=== PATIENT | female | born 1930 | race Caucasian/White ===

== ENCOUNTER 2016-07-11 08:15 | Emergency (ER) | payer MEDICARE ==
[~2016-07-11] VITALS: Ht 162.6 cm; Wt 70.5 kg
[~2016-07-11 08:15] MED LIST: LEVO100T97 PO; NITR0.4T6 SL
[2016-07-11 08:19] VITALS: BP 139/77; PULSE 87; RESP 14; O2SAT 96
--- NOTE | 2016-07-11 09:20 | ED.REPORT ---
HPI-Abd Pain F 40 and Over Date of Service Jul 11, 2016 ED Provider: James Frank MD 85 y/o female with a hx of constipation, hemorrhoid, Myocardial Infarction (5 stents) and Cerebrovascular accident presents to the ED complaining of lower abdominal pain, onset 3 days ago. The pain is exacerbated by eating and drinking. Her pain today increased after drinking coffee this morning. She says she "feels like something is crawling in her abdomen". She also complains of decreased urination, constipation (but she is passing gas) and subjective fever but denies dysuria, bloody stools, melena, change in chronic back pain, hematuria, nausea, vomiting, weakness, numbness, chest pain, and shortness of breath. Pt says she has never had similar before. As per the daughter, the pt seemed confused yesterday and had a BM after using a suppository. Nursing Notes Stated Complaint: ABD PAIN Chief Complaint: Female Abdominal Pain Nursing Notes Reviewed: Yes Allergies: Coded Allergies: No Known Allergies (Verified Allergy, Unknown, 02/03/15) Scheduled Cephalexin (Keflex) 500 Mg Capsule 500 MG PO QID Levothyroxine-Expunged Drug, Do Not Renew! (Levoxyl-Expunged Drug, Do Not Renew! ) 100 Mcg Tablet 100 MCG PO DAILY Nitroglycerin SL (Nitroglycerin SL) 0.4 Mg Tab.subl 0.4 MG SL prn use one under your tongue for chest pain. Repeat in five minutes is not effective. Repeat again if still having chest pain. Call 911 if a 3rd dose is needed. Dispense 2 bottles for patient. dispose of bottle opened more than 4 months or if "tingle" not noted under tongue when used. General Time Seen by MD: 09:11 Chief Complaint Abdominal pain Hx Obtained From: Patient Arrived By: Walk-in Sudden in Onset?: Yes Onset Occurred: 3 days ago Context of Onset: Eating Symptom Duration: Intermittent Progression since Onset: Intermittent Location: : Abdomen lower Quality: Painful Radiation: : Does not radiate Severity: Current: Mild Severity: Maximum: Moderate Recent Healthcare: Recent doctor visit Similar Sx Previous: No Past Medical History Past Medical History Strokes x2 CAD Hx of DVTs Chronic knee and back pain Hemorrhoid constipation Myocardial Infarction Reports: Asthma Past Surgical History Vascular surgery Cardiac stents Family History noncontributory Smoking History Former Smoker Social History Alcohol Use: Denies alcohol use Drug Use: Denies drug use Other Social History: Good social support, Local resident Occupation lives with daughter Ambulatory Status Independent Review of Systems Constitutional: Reports: Fever Respiratory: Denies: Shortness of breath Cardiovascular: Denies: Chest pain GI: Reports: Abdominal pain, Constipation, Denies: Bloody/tarry stool, Melena, Nausea, Vomiting Female: Reports: Urination decreased, Denies: Dysuria, Flank pain, Hematuria Complete sys rev & neg: except as marked. Neurologic: Reports: Confusion, Denies: Focal weakness, Numbness, Slurred speech, Unable to speak, Weakness Physical Exam Vital Signs Vital Signs (First) Date Time Temp Pulse Resp B/P Pulse Ox O2 Delivery O2 Flow Rate FiO2 07/11/16 08:19 37.4 87 14 139/77 96 Room Air Initial VS: Reviewed, Vital signs normal Head / Eyes: Atraumatic, Normocephalic, PERRL ENT: Mucous membranes moist, Conjunctiva normal, No scleral icterus Neck: Supple, Full range of motion Extremities: Vascular intact, Neuro intact, No swelling, No tenderness Skin: Warm, Dry, No cyanosis Neurologic: Alert, Oriented, Nonfocal Psychiatric: Mood/affect normal, Behavior normal, Normal thought content General/Constitutional: Awake, Alert, No acute distress, Cooperative, Not toxic appearing Respiratory / Chest: Atraumatic, Breath sounds NL, Breath sounds = bilat, No respiratory distress, No rales, No rhonchi, No wheezing, No retractions Cardiovascular: Heart rate NL, Regular rhythm, Heart sounds NL, No murmurs Abdomen: Atraumatic, Soft, No guarding, No rebound Tenderness/Guarding/Rebound: Positive: Tender diffuse (mild), Tender suprapubic Mild distension. Back: Full range of motion, Painless range of motion Upper Extremity / MS: Atraumatic, Full range of motion Lower Extremity / Pelvis / MS: Atraumatic, Full range of motion Interpretation & Diagnostics Lab Results Interpretation Result Diagram: 07/11/16 0950 07/11/16 0950 Test 07/11/16 09:45 07/11/16 09:50 Urine Color Yellow (YELLOW) Urine Appearance Clear (CLEAR,HAZY) Urine pH 6.0 (5.0-8.0) Urine Specific [place] 1.010 (1.003-1.035) Urine Protein Negativemg/dL (NEG,TRACE) Urine Glucose (UA) Negativemg/dL (NEGATIVE) Urine Ketones Negativemg/dL (NEGATIVE) Urine Occult Blood Negative (NEGATIVE) Urine Nitrite Positive (NEGATIVE) Urine Bilirubin Negative (NEGATIVE) Urine Urobilinogen Normalmg/dL (NORMAL) Urine Leukocyte Esterase Small (NEGATIVE) Urine RBC 0-2/hpf (0-2) Urine WBC 11-50/hpf (0-5) Urine Epithelial Cells Moderate/hpf (NONE-MOD) Urine Crystals None seen (NONE SEEN) Urine Bacteria Many/hpf (NONE-FEW) Urine Hyaline Casts None/lpf (NONE) Urine Granular Casts None seen (NONE SEEN) Urine Waxy Casts None seen (NONE SEEN) Urine Red Blood Cell Casts None seen (NONE SEEN) Urine White Blood Cell Casts None seen (NONE SEEN) Urine Mucus Present (None Seen) Urine Trichomonas None seen (NONE SEEN) Urine Yeast None (NONE SEEN) Urinalysis Comment None Urine Culture Reflexed Indicated White Blood Count 8.9th/mm3 (3.8-10.1) Red Blood Count 4.41mil/mm3 (3.90-5.20) Hemoglobin 13.1g/dL (12.0-15.6) Hematocrit 39.8% (35.0-46.0) Mean Corpuscular Volume 90.2fL (81-100) Mean Corpuscular Hemoglobin 29.7pg (27.0-35.0) Mean Corpuscular Hemoglobin Concent 32.9% (32.0-37.0) Red Cell Distribution Width 14.5% (12.3-15.4) Platelet Count 239bil/L (150-400) Neutrophils (%) (Auto) 71.1% (40-74) Lymphocytes (%) (Auto) 17.4% (14-46) Monocytes (%) (Auto) 9.4% (4-12) Eosinophils (%) (Auto) 1.5% (0-5) Basophils (%) (Auto) 0.3% (0-3) Sodium Level 135mEq/L (134-144) Potassium Level 4.1mEq/L (3.5-5.2) Chloride Level 97mEq/L (97-108) Carbon Dioxide Level 22mmol/L (18-29) Blood Urea Nitrogen 13mg/dL (8-27) Creatinine 0.94mg/dL (0.57-1.00) Estimat Glomerular Filtration Rate 81mL/min (>59) Glucose Level 115mg/dL (60-99) Calcium Level 9.1mg/dL (8.5-10.1) Magnesium Level 2.3mg/dL (1.6-2.6) Total Bilirubin 0.8mg/dL (0.0-1.2) Aspartate Amino Transf (AST/SGOT) 26U/L (0-50) Alanine Aminotransferase (ALT/SGPT) 19U/L (0-32) Alkaline Phosphatase 87U/L (25-165) Total Protein 8.4g/dL (6.4-8.4) Albumin 4.4g/dL (3.4-5.0) Lipase 21U/L (13-60) Hold [place]ajera Top Tube Received (Received) Lab Results Interpretation: Urine dip positive for: nitrites, trace HGB X-Ray Abdominal Interpretation IMPRESSION: 1. No bowel obstruction. 2. New right lateral lung density probably represent superimposed rib shadows. However, other etiologies cannot be entirely excluded such as a developing nodule. A chest CT is recommended, which may be performed on a nonemergent basis, particularly if there is no clinical suspicion for acute chest pathology. Dictated by: Georgi Greenwood M.D. on 07/11/2016 at 9:14 Approved by: Georgi Greenwood M.D. on 07/11/2016 at 9:18 Study: 4 view Interpretation / Wet Read by: Interpret - Radiologist Re-Eval/Medical Decision Med Decision/Clinical Course 85-year-old female history of constipation presenting with lower abdominal pain and constipation. Vital signs stable. Her labs are stable. Urine suggests UTI. She has no sign symptoms of pyelonephritis. She will be treated with antibiotics for her UTI with return precautions and follow-up with primary doctor in 1-2 days. She will take her home regimen for constipation. Return precautions given. Source of Hx: Family Re-Evaluation/Progress : Time of Eval: 11:15 Re-Evaluation/Progress Note: Pt rechecked. Discussed lab and imaging results and diagnosis. Informed the pt of the plan to discharge. Pt understands and agrees with plan. F/U instructions and RTER warning given. All questions addressed. Counseled Regarding: Diagnosis, Lab results, Need for follow-up, When/why to return to ED Discharge & Departure Primary Impression: UTI (urinary tract infection) Urinary tract infection type: site unspecified Hematuria presence: without hematuria Qualified Code: N39.0 - Urinary tract infection, site not specified Additional Impression: Constipation Constipation type: unspecified constipation type Qualified Code: K59.00 - Constipation, unspecified Disposition: Home Discharge Condition All VS Reviewed: Yes Condition: Stable Additional Instructions: Take Keflex as prescribed for the urinary tract infection. The only risk with Keflex is that it may go up to the kidneys. Please return to the emergency department in case of back pain, vomiting, fever, worsening abdominal pain or any other new or worsening symptoms. For constipation, take an [id number] medication like Docusate. You may also try a stronger laxative like Miralax. Increase the fiber in your diet. Avoid narcotics. You may take Tylenol or Ibuprofen. Referrals: Rosa Jay (PCP) Scribe Attestation Portions of this note were transcribed by Kang Garcia. I, , personally performed the history, physical exam and medical decision-making;I reviewed and confirmed the accuracy of the information in the transcribed note. Signed by Kang Romero and Anahy Gibson. 07/11/16 11:21 copies to: Rosa Jay Ben M MD Jul 11, 2016 09:19 Kang Romero Jul 11, 2016 09:31 DAYTON GARCIA Jul 11, 2016 10:00
[2016-07-11 10:00] LABS: BASOPHILS % (AUTO) 0.3 % (0-3); EOSINOPHILS % (AUTO) 1.5 % (0-5); MONOCYTES % (AUTO) 9.4 % (4-12); Mean Corpuscular Hemoglobin 29.7 pg (27.0-35.0); Mean Corpuscular Volume 90.2 fL (81-100); NEUTROPHILS % (AUTO) 71.1 % (40-74); Platelet Count 239 bil/L (150-400)
--- NOTE | 2016-07-11 10:19 | DRSVH ---
PROCEDURE: X-RAY ACUTE ABDOMINAL SERIES ([id number]) INDICATIONS: abd pain h/o constipation TECHNIQUE: One view chest and two views of the abdomen were acquired. COMPARISON: [facility], CR, XR CHEST 1VW (PORTABLE), 07/25/2015, 8:10. [facility], CR, XR KUB, 02/03/2015, 18:01. FINDINGS: Surgical changes and devices: None. Chest: There is a new density evident overlying the mid to lower aspect of the lateral right lung, wh ich may represent superimposed ribs. Mild linear scarring/atelectasis is noted at the left lung base . There is also scarring within the lung apices. No focal consolidation, effusion, or pneumothorax is evident. The cardiomediastinal silhouette and pulmonary vasculature are within normal limits. Th ere is aortic atherosclerosis. Abdomen: Bowel gas pattern is normal. No air-filled distended small bowel loops demonstrating air-f luid levels are evident. No pneumoperitoneum is appreciated. Scattered calcifications within the up per abdomen probably represent vascular calcifications. Visualized solid organ contours appear grover l. Bones: No suspicious bony lesions. Degenerative changes of the imaged spine and hips are present. Kyphoplasty/vertebroplasty changes within the mid thoracic region are again noted. IMPRESSION: 1. No bowel obstruction. 2. New right lateral lung density probably represent superimposed rib shadows. However, other etiol ogies cannot be entirely excluded such as a developing nodule. A chest CT is recommended, which may be performed on a nonemergent basis, particularly if there is no clinical suspicion for acute chest p athology. Dictated by: Georgi Greenwood M.D. on 07/11/2016 at 9:14 Approved by: Georgi Greenwood M.D. on 07/11/2016 at 9:18
[2016-07-11 10:41] LABS: APPEARANCE,URINE CLEAR (CLEAR,HAZY); COLOR,URINE YELLOW (YELLOW)
[2016-07-11 10:42] LABS: OCCULT BLOOD,URINE NEGATIVE (NEGATIVE); UROBILINOGEN,URINE NORMAL (NORMAL)
[2016-07-11 10:43] LABS: Magnesium 2.3 mg/dL (1.6-2.6)
[2016-07-11] MEDS ORDERED: CEPH-512 PO (11:08)
[2016-07-11 11:45] VITALS: BP 146/83; PULSE 76; RESP 16; O2SAT 96
== END 2016-07-11 11:47 | disposition home or self-care (01) ==
LOC: SED 08:15
DX: N39.0 Urinary tract infection, site not specified (principal); K59.00 Constipation, unspecified; B96.20 Unspecified Escherichia coli [E. coli] as the cause of diseases classified elsewhere; J45.909 Unspecified asthma, uncomplicated; I25.2 Old myocardial infarction; I25.10 Atherosclerotic heart disease of native coronary artery without angina pectoris; Z87.19 Personal history of other diseases of the digestive system; Z86.73 Personal history of transient ischemic attack (TIA), and cerebral infarction without residual deficits; Z86.718 Personal history of other venous thrombosis and embolism; Z95.818 Presence of other cardiac implants and grafts; Z87.891 Personal history of nicotine dependence
CPT/HCPCS: 36415; 74022; 80053; 81000; 83690; 83735; 85025; 87086; 87088; 87186; 96372; 99285; J2270